=== PATIENT | male | born 1985 | race Caucasian/White ===

== ENCOUNTER 2019-01-25 13:40 | Emergency (ER) | payer OTHER ==
[2019-01-25 14:28] LABS: BASOPHILS # (AUTO) 0.1 10^3/uL (0.0-0.1); BASOPHILS % (AUTO) 0.8 %; EOSINOPHILS # (AUTO) 0.1 10^3/uL (0.0-0.7); EOSINOPHILS % (AUTO) 0.8 %; HGB - HEMOGLOBIN 16.3 g/dL (14.0-18.0); LYMPHOCYTES # (AUTO) 1.4 10^3/uL (1.5-3.5); LYMPHOCYTES % (AUTO) 22.6 %; MEAN CORPUSCULAR HEMOGLOBIN 30.6 pg (27.0-31.0); MEAN CORPUSCULAR HGB CONC 33.8 g/dL (32.0-36.0); MEAN CORPUSCULAR VOLUME 90.4 fL (80.0-94.0); MEAN PLATELET VOLUME 10.3 fL (7.4-11.4); MONOCYTES # (AUTO) 0.4 10^3/uL (0.0-1.0); MONOCYTES % (AUTO) 6.3 %; NEUTROPHILS # (AUTO) 4.4 10^3/uL (1.5-6.6); NEUTROPHILS % (AUTO) 69.2 %; PLT - PLATELET COUNT 248 10^3/uL (130-450); RED BLOOD COUNT 5.33 10^6/uL (4.70-6.10); RED CELL DISTRIBUTION WIDTH 12.7 % (12.0-15.0); WHITE BLOOD COUNT 6.3 x10^3/uL (4.8-10.8)
--- NOTE | 2019-01-25 14:36 | XRAY Report ---
Reason: CP Procedure Date: 01/25/2019 Accession Number: [id number] / [id number] Procedure: XR - Chest 2 View X-Ray CPT Code: 51989 Final Report FULL RESULT: EXAM: CHEST RADIOGRAPHY EXAM DATE: 01/25/2019 02:10 PM. CLINICAL HISTORY: Mid chest pain for 2 weeks, worsening today. COMPARISON: None. TECHNIQUE: 2 views. FINDINGS: Lungs/Pleura: No focal opacities evident. No pleural effusion. No pneumothorax. Normal volumes. Mediastinum: Heart and mediastinal contours are unremarkable. Other: None. IMPRESSION: Normal 2-view chest radiography. [facility]
[2019-01-25 14:47] LABS: ALBUMIN 4.9 g/dL (3.2-5.5); ALBUMIN/GLOBULIN RATIO 1.4 (1.0-2.2); BILIRUBIN,TOTAL 1.3 mg/dL (0.2-1.0); CALCIUM 9.6 mg/dL (8.5-10.3); MAGNESIUM 1.9 mg/dL (1.7-2.8); PHOSPHORUS 2.9 mg/dL (2.5-4.6); TOTAL PROTEIN 8.5 g/dL (6.7-8.2)
--- NOTE | 2019-01-25 15:18 | ED Physician Documentation ---
PD HPI CHEST PAIN - Stated complaint Stated Complaint: CP - Chief complaint Chief Complaint: Cardiac - History obtained from History obtained from: Patient - History of Present Illness Timing - onset: How many days ago Timing - onset during: Light activity. No: Rest, Eating Timing - duration: Days (He had noted some chest wall pain and chest pain prior to medication and related to anxiety. He had not had any cold or cough or injury. He had noticed it increase a bit when he started Prozac a couple weeks ago and then it improved. He is noticed it again with the increased dose of Prozac last week and is feeling the chest pain again for a few days.) Timing - details: Gradual onset, Waxing and waning Quality: Aching, Pain Location: Substernal, Left chest Radiation: Back Associated symptoms: Palpitations. No: Shortness of air, Nausea, Feeling faint / dizzy, Cough Similar symptoms before: No diagnosis Recently seen: Clinic (had dose prozac increased a week ago) Review of Systems Constitutional: denies: Fever, Chills Nose: denies: Rhinorrhea / runny nose, Congestion Throat: denies: Sore throat Respiratory: denies: Dyspnea, Cough GI: denies: Vomiting, Diarrhea Skin: denies: Rash, Lesions Musculoskeletal: denies: Extremity swelling PD PAST MEDICAL HISTORY - Past Medical History Past Medical History: Yes Cardiovascular: None Respiratory: None Neuro: None Endocrine/Autoimmune: None Psych: Depression, Anxiety - Present Medications Home Medications: Ambulatory Orders Medication Instructions Recorded Confirmed Acetaminophen [Tylenol] 650 mg PO Q6H PRN #50 tablet 01/25/19 Naproxen 500 mg PO BID #20 tablet 01/25/19 - Allergies Allergies/Adverse Reactions: Allergies Allergy/AdvReac Type Severity Reaction Status Date / Time No Known Drug Allergies Allergy Verified 01/25/19 13:49 PD ED PE NORMAL - Vitals Vital signs reviewed: Yes - General General: Alert and oriented X 3, No acute distress, Well developed/nourished - HEENT HEENT: Moist mucous membranes, Pharynx benign - Neck Neck: Supple, no meningeal sign, No adenopathy - Cardiac Cardiac: RRR, No murmur - Respiratory Respiratory: Clear bilaterally, Other (Localized chest wall tenderness at the left sternal border in the area of the cartilage. There is no redness no rash seen. There is no tenderness on the right side.) - Abdomen Abdomen: Soft, Non tender - Back Back: No spinal TTP - Derm Derm: Normal color, Warm and dry - Extremities Extremities: No tenderness to palpate, No edema, No calf tenderness / cord - Neuro Neuro: Alert and oriented X 3, No motor deficit, Normal speech Results - Vitals Vitals: Vital Signs - 24 hr 01/25/19 01/25/19 01/25/19 13:49 15:31 16:36 Temperature 36.5 C 36.5 C 37.1 C Heart Rate 86 72 72 Respiratory 17 18 14 Rate Blood Pressure 163/107 H 160/98 H 155/95 H O2 Saturation 98 100 100 Oxygen O2 Source Room air - EKG (time done) 13:47 Rate: Rate (enter#) (82) Rhythm: NSR Esmond: Normal Intervals: Normal IA QRS: Normal Ischemia: Normal ST segments, ST elevation c/w repol. No: ST elevation c/w ischemia, ST depression Compare to prior EKG: Old EKG unavailable - Labs Labs: Laboratory Tests 01/25/19 01/25/19 01/25/19 14:16 14:16 14:16 WBC 6.3 RBC 5.33 Hgb 16.3 Hct 48.2 MCV 90.4 MCH 30.6 MCHC 33.8 RDW 12.7 Plt Count 248 MPV 10.3 Neut # (Auto) 4.4 Lymph # (Auto) 1.4 L [place] # (Auto) 0.4 Eos # (Auto) 0.1 Baso # (Auto) 0.1 Absolute Nucleated RBC 0.00 Nucleated RBC % 0.0 Sodium 138 Potassium 3.8 Chloride 102 Carbon Dioxide 28 Anion Gap 8.0 BUN 12 Creatinine 1.0 Estimated GFR (MDRD) 87 L Glucose 105 H Calcium 9.6 Phosphorus 2.9 Magnesium 1.9 Total Bilirubin 1.3 H AST 26 ALT 42 Alkaline Phosphatase 60 Troponin I High Sens < 2.3 L Total Protein 8.5 H Albumin 4.9 Globulin 3.6 Albumin/Globulin Ratio 1.4 Lipase 29 - Rads (name of study) chest xray Radiology: Prelim report reviewed (negative chest xray), See rad report PD MEDICAL DECISION MAKING - ED course Complexity details: reviewed results (CXR, ECG, and labs are good. He does have focal chest wall tenderness at costchondral area. ), considered differential (I do not think the chest pain is a direct side effect of the Prozac but more sign of his anxiety and having some anxiety over the mild side effects of the Prozac and increased dose. I would add some anti-inflammatories and presume this to be a short-term problem and I think he will be better once he has been on the new dose for a week or so.), d/w patient Departure - Departure Disposition: 01 Home, Self Care Clinical Impression: Left-sided chest wall pain Condition: Stable Record reviewed to determine appropriate education?: Yes Instructions: ED Chest Pain Costochondritis Follow-Up: [facility] [Provider Group] Prescriptions: Acetaminophen [Tylenol] 650 mg PO Q6H PRN #50 tablet PRN Reason: PRN PAIN &/OR FEVER Naproxen 500 mg PO BID #20 tablet Comments: Your EKG blood tests and x-ray are normal. There is no obvious sign of more significant cause of the pain. Your symptoms and findings suggest some inflammation of the cartilage on the chest wall. We would treat this with anti- inflammatories. Naproxen 500 mg twice daily for the next 7 to 10 days. Add Tylenol every 4-6 hours if needed for pain as well. Continue your current medications. Consider using your trazodone for sleep half tablet nightly for the next 5 or 6 days consistently to ensure you are having good rest in the short-term. Then resume as needed. The symptoms should improve over the next several days to a week and I would anticipate them to stay away at that point. Discharge Date/Time: 01/25/19 16:48
[2019-01-25] MEDS ORDERED: CHERRY SYRUP 10 ML UDC PO ONE (16:00)
[2019-01-25] MEDS ORDERED: NAPROXEN 250 MG TABLET PO STA (16:00)
[2019-01-25] MEDS ORDERED: DEXAMETHASONE 10 MG/ML VIAL PO STA (16:00)
[2019-01-25 16:39] VITALS: BP 155/95
== END 2019-01-25 16:48 | disposition home or self-care (01) ==
LOC: ED 13:40
DX: R07.89 Other chest pain (principal); F41.9 Anxiety disorder, unspecified
CPT/HCPCS: 36415; 71046; 80053; 83690; 83735; 84100; 84484; 85025; 93005; 99284; A9270

== ENCOUNTER 2019-04-13 07:06 | Outpatient (CLI) | payer OTHER | END 2019-04-13 07:07 | disposition critical access hospital (66) | LOC: EMS 07:06 | PROVIDERS: ATTEND Surgery | DX: M54.2 Cervicalgia (principal); V43.53XA Car driver injured in collision with pick-up truck in traffic accident, initial encounter; Y92.414 Local residential or business street as the place of occurrence of the external cause | CPT/HCPCS: A0425; A0429 ==

== ENCOUNTER 2019-04-20 10:14 | Emergency (ER) | payer OTHER ==
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
[2019-04-20] MEDS ORDERED: MECLIZINE 12.5 MG TABLET PO STA (11:58)
[2019-04-20 12:32] VITALS: BP 145/94
== END 2019-04-20 12:32 | disposition home or self-care (01) ==
LOC: ED 10:14
DX: R42 Dizziness and giddiness (principal); R51 Headache; R11.0 Nausea; F07.81 Postconcussional syndrome
CPT/HCPCS: 99282; 99284; A9270